=== PATIENT | female | born 1995 | race Caucasian/White ===

== ENCOUNTER 2019-06-16 17:34 | Emergency (ER) | payer OTHER ==
[2019-06-16 17:44] VITALS: BP 130/65
== END 2019-06-16 19:15 | disposition left against medical advice (07) ==
LOC: ER 17:34
DX: Z53.21 Procedure and treatment not carried out due to patient leaving prior to being seen by health care provider (principal)

== ENCOUNTER 2019-06-16 21:23 | Emergency (ER) | payer OTHER ==
[2019-06-16 22:29] LABS: ABSOLUTE BASOPHILS # (AUTO) 0.1 10^3/uL (0.0-0.2); ABSOLUTE EOSINOPHILS # (AUTO) 0.3 10^3/uL (0.0-0.6); ABSOLUTE LYMPHOCYTES (AUTO) 2.3 10^3/uL (0.5-4.7); ABSOLUTE MONOCYTES (AUTO) 0.3 10^3/uL (0.1-1.4); ABSOLUTE NEUT (AUTO) 4.2 10^3/uL (1.7-8.2); BASOPHILS % (AUTO) 0.8 % (0-2); HEMATOCRIT 38.2 % (36.0-47.0); LYMPHOCYTES % (AUTO) 32.4 % (13-45); MEAN CORPUSCULAR HEMOGLOBIN 29.5 pg (27.0-33.4); MEAN CORPUSCULAR HGB CONC 34.1 g/dL (32.0-36.0); MEAN CORPUSCULAR VOLUME 86 fl (80-97); MONOCYTES % (AUTO) 3.9 % (3-13); PLATELET COUNT 237 10^3/uL (150-450); RED BLOOD COUNT 4.42 10^6/uL (3.72-5.28); RED CELL DISTRIBUTION WIDTH 13.3 % (11.5-14.0); SEGMENTED NEUTROPHILS % (AUTO) 58.9 % (42-78); TOTAL CELLS COUNTED % (AUTO) 100 %; WHITE BLOOD COUNT 7.2 10^3/uL (4.0-10.5)
[2019-06-16 22:51] LABS: ALANINE AMINOTRANSFERASE 20 U/L (9-52); ALKALINE PHOSPHATASE 95 U/L (38-126); ANION GAP 5 (5-19); ASPARTATE AMINO TRANSFERASE 20 U/L (14-36); BILIRUBIN,DIRECT 0.2 mg/dL (0.0-0.4); BILIRUBIN,TOTAL 0.2 mg/dL (0.2-1.3); BLOOD UREA NITROGEN 14 mg/dL (7-20); CARBON DIOXIDE 25 mmol/L (22-30); CHLORIDE 109 mmol/L (98-107); GLUCOSE 124 mg/dL (75-110); POTASSIUM 3.9 mmol/L (3.6-5.0); TOTAL PROTEIN 6.5 g/dL (6.3-8.2)
[2019-06-16 22:56] LABS: AMORPHOUS SEDIMENT,URINE 1+ /HPF; APPEARANCE,URINE TURBID; BILIRUBIN,URINE NEGATIVE (NEGATIVE); COLOR,URINE YELLOW; GLUCOSE, URINE NEGATIVE (NEGATIVE); KETONES,URINE NEGATIVE (NEGATIVE); LEUKOCYTE ESTERASE,URINE NEGATIVE (NEGATIVE); NITRITE,URINE NEGATIVE (NEGATIVE); PROTEIN,URINE NEGATIVE (NEGATIVE); URINE SPECIFIC GRAVITY 1.025; UROBILINOGEN,URINE NEGATIVE mg/dL (<2.0)
[2019-06-17] MEDS ORDERED: OXYCODONE-ACETAMINOPHEN 5-325 MG TABLET PO ONE (00:50)
[2019-06-17] MEDS ORDERED: DICYCLOMINE HCL 20 MG TABLET PO ONE (00:50)
[2019-06-17] MEDS ORDERED: KETOROLAC TROMETHAMINE 60 MG/2 ML SDV IM ONE (00:50)
--- NOTE | 2019-06-17 01:29 | ER Document Report ---
ED General - General Chief Complaint: Pelvic Pain Stated Complaint: STOMACH AND PELVIC PAIN Time Seen by Provider: 06/17/19 00:40 Primary Care Provider: LEIDY REYES MD [Primary Care Provider] - Follow up as needed TRAVEL OUTSIDE OF THE [place] IN LAST 30 DAYS: No - HPI Notes: Patient is a 24-year-old female presents emergency department for evaluation of lower abdominal pain, particularly on the left side. Is been intermittent for the last 4 days. She actually states that she has had pain prior to this, very similar nature, intermittently for years. She denies any fevers or chills. No nausea or vomiting. She has a history of chronic constipation. She states that she took some milk of magnesia. She states she is been having bowel movements, had 4 formed bowel movements today, and her pain was worsened after them. She denies any melena or hematochezia. No diarrhea. No dysuria, urinary frequency, or hematuria. No vaginal discharge. No abnormal vaginal bleeding. No genital sores or lesions. She has no history of ovarian cysts. - Related Data Allergies/Adverse Reactions: No Known Allergies Allergy (Verified 06/16/19 17:34) Past Medical History - General Information source: Patient - Social History Smoking Status: Current Every Day Smoker Frequency of alcohol use: Rare Drug Abuse: None Family History: Reviewed & Not Pertinent Patient has suicidal ideation: No Patient has homicidal ideation: No Pulmonary Medical History: Reports: Hx Asthma Renal/ Medical History: Denies: Hx Peritoneal Dialysis Past Surgical History: Reports: Hx Abdominal Surgery, Hx Tonsillectomy - Immunizations Immunizations up to date: Yes Hx Diphtheria, Pertussis, Tetanus Vaccination: Yes Review of Systems - Review of Systems Constitutional: No symptoms reported EENT: No symptoms reported Cardiovascular: No symptoms reported Respiratory: No symptoms reported Gastrointestinal: See HPI Genitourinary: No symptoms reported Female Genitourinary: No symptoms reported Musculoskeletal: No symptoms reported Skin: No symptoms reported Neurological/Psychological: No symptoms reported Physical Exam - Vital signs Vitals: Temp Pulse Resp BP Pulse Ox 97.5 F 100 22 H 144/81 H 98 06/16/19 21:28 06/16/19 21:28 06/16/19 21:28 06/16/19 21:28 06/16/19 21:28 - Notes Notes: This is a 24-year-old female who appears her stated age in no acute distress. Vital signs reviewed, please refer to chart. Head is normocephalic, atraumatic. Pupils equal round, reactive to light. Neck is supple without meningismus. Heart is regular rate and rhythm. Lungs are clear to auscultation bilaterally. Abdomen is soft, moderately tender in the left lower quadrant without rebound or guarding, normoactive bowel sounds throughout. Extremities without cyanosis, clubbing. Posterior calves are nontender. Peripheral pulses are equal. Skin is warm and dry. Patient is awake, alert, neurological exam is nonfocal. Course - Re-evaluation Re-evalutation: 06/17/19 01:26 Patient presents emergency department for evaluation of lower abdominal pain. Her exam is tender but nonsurgical. She has absolutely no associated symptoms with the exception of constipation. This is been an ongoing issue for some time. I explained to her the pain medication might help her temporarily, but it would certainly worsen the underlying suspected problem with constipation. She was given 1 dose of Percocet here. I also administered Toradol and Bentyl. I strongly encouraged the patient to follow-up with her primary care provider, seek out potential referral to gastroenterology. Certainly IBS with constipation would be high on the differential in this patient. She voiced understanding. I will send her home with a prescription for Bentyl and close follow-up. She is given instructions on abdominal pain as well as constipation. She is to return to the emergency department with worsening or new concerning symptoms of any sort. - Vital Signs Vital signs: Temp Pulse Resp BP Pulse Ox 97.5 F 100 22 H 144/81 H 98 06/16/19 21:28 06/16/19 21:28 06/16/19 21:28 06/16/19 21:28 06/16/19 21:28 - Laboratory Result Diagrams: 06/16/19 22:15 06/16/19 22:15 Laboratory results interpreted by me: 06/16/19 06/16/19 21:55 22:15 Chloride 109 H Glucose 124 H Urine Blood SMALL H Discharge - Discharge Clinical Impression: Left lower quadrant abdominal pain Constipation Qualifiers: Constipation type: unspecified constipation type Qualified Code(s): K59.00 - Constipation, unspecified Condition: Stable Disposition: HOME, SELF-CARE Instructions: Abdominal Pain ([facility]), Antispasmodics ([facility]), Constipation ([facility]) Additional Instructions: Take Bentyl as directed. Follow-up with your primary care provider tomorrow. Consider referral on to gastroenterology for further evaluation. If you develop worsening or new concerning symptoms of any sort, return immediately to the emergency department for evaluation. Referrals: LEIDY REYES MD [Primary Care Provider] - Follow up as needed
[2019-06-17 01:43] VITALS: BP 134/82
== END 2019-06-17 01:45 | disposition home or self-care (01) ==
LOC: ER 21:23
DX: K59.00 Constipation, unspecified (principal); R10.32 Left lower quadrant pain; R10.814 Left lower quadrant abdominal tenderness; J45.909 Unspecified asthma, uncomplicated; F17.200 Nicotine dependence, unspecified, uncomplicated
CPT/HCPCS: 99283; 96374; 36415; 83690; 85025; 81025; 80053; 81001; J3490; J1885

== ENCOUNTER 2020-04-06 12:25 | Emergency (ER) | payer SELFPAY ==
[2020-04-06] MEDS ORDERED: METOCLOPRAMIDE HCL INJ/PF 10 MG/2 ML SDV IV ONE (13:06)
[2020-04-06] MEDS ORDERED: ONDANSETRON HCL INJ/PF 4 MG/2 ML SDV IV ONE (13:06)
[2020-04-06] MEDS ORDERED: DIPHENHYDRAMINE HCL 50 MG/ML VIAL IV ONE (13:06)
[2020-04-06] MEDS ORDERED: FAMOTIDINE 20 MG TABLET PO ONE (13:06)
--- NOTE | 2020-04-06 13:16 | ER Document Report ---
ED General - General Chief Complaint: Abdominal Pain Stated Complaint: ABDOMINAL PAIN Primary Care Provider: LEIDY REYES MD [Primary Care Provider] - Follow up as needed Notes: 25-year-old female status post lap band several years ago in [place] presents with abdominal pain left-sided nausea vomiting difficulty swallowing and regurgitation. She says this happens every few months and every time she gets checked out and then I will find anything. She is not on a PPI has no diarrhea or fever. She is not had any recurrent surgeries. She does not have a surgeon here because "they always tell me they can help me." Her pain is moderate and mild and has been going on for several months. She is here today mostly because she cannot tolerate p.o. TRAVEL OUTSIDE OF THE [place] IN LAST 30 DAYS: No - Related Data Allergies/Adverse Reactions: No Known Allergies Allergy (Verified 06/16/19 17:34) Past Medical History - General Information source: Patient - Social History Smoking Status: Current Every Day Smoker Family History: Reviewed & Not Pertinent Patient has homicidal ideation: No Pulmonary Medical History: Reports: Hx Asthma Renal/ Medical History: Denies: Hx Peritoneal Dialysis Past Surgical History: Reports: Hx Abdominal Surgery, Hx Tonsillectomy - Immunizations Immunizations up to date: Yes Hx Diphtheria, Pertussis, Tetanus Vaccination: Yes Review of Systems - Review of Systems Notes: REVIEW OF SYSTEMS GEN: Denies fever, chills, weight loss ENT: Denies sore throat, nasal discharge, ear pain EYES: Denies blurry vision, eye pain, discharge CV: Denies chest pain, palpitations, edema RESP: Denies cough, shortness of breath, wheezing GI: Denies abdominal pain, nausea, vomiting, diarrhea MSK: Denies joint pain/swelling, edema, SKIN: Denies rash, skin lesions LYMPH: Denies swollen glands/lymph nodes NEURO: Denies headache, focal weakness or numbness, dizziness PSYCH: Denies depression, suicidal or homicidal ideation PHYSICAL EXAMINATION General: No acute distress, well-nourished Head: Atraumatic, normocephalic ENT: Mouth normal, oropharynx moist, no exudates or tonsillar enlargement Eyes: Conjunctiva normal, pupils equal, lids normal Neck: No JVD, supple, no guarding CVS: Normal rate, regular rhythm, no murmurs Resp: No resp distress, equal and normal breath sounds bilaterally GI: Nondistended, soft, no tenderness to palpation, no rebound or guarding Ext: No deformities, no edema, normal range of motion in upper and lower ext Back: No CVA or midline TTP Skin: No rash, warm Lymphatic: No lymphadeopathy noted Neuro: Awake, alert. Face symmetric. GCS 15. Physical Exam - Vital signs Vitals: Temp Pulse Resp BP Pulse Ox 98.7 F 137 H 18 145/93 H 98 04/06/20 12:32 04/06/20 12:32 04/06/20 12:32 04/06/20 12:32 04/06/20 12:32 Course - Vital Signs Vital signs: Temp Pulse Resp BP Pulse Ox 98.7 F 137 H 18 145/93 H 98 04/06/20 13:03 04/06/20 12:32 04/06/20 12:32 04/06/20 12:32 04/06/20 12:32 - Laboratory Result Diagrams: 04/06/20 13:25 04/06/20 13:25 Laboratory results interpreted by me: 04/06/20 04/06/20 13:25 13:25 RDW 14.5 H Sodium 136.9 L Discharge - Discharge Clinical Impression: Upper abdominal pain Condition: Good Disposition: HOME, SELF-CARE Additional Instructions: Please contact Dr. Parminder Jones, bariatric surgeon in [place] for follow-up Prescriptions: Omeprazole 40 mg PO DAILY #30 capsule.dr Pickardazine HCl [Phenergan 25 mg Supp.rect] 1 supp NH Q6H #12 supp.rect Forms: Return to Work Referrals: LEIDY REYES MD [Primary Care Provider] - Follow up as needed
[2020-04-06 13:48] LABS: ABSOLUTE BASOPHILS # (AUTO) 0.1 10^3/uL (0.0-0.2); ABSOLUTE EOSINOPHILS # (AUTO) 0.3 10^3/uL (0.0-0.6); ABSOLUTE LYMPHOCYTES (AUTO) 2.5 10^3/uL (0.5-4.7); ABSOLUTE MONOCYTES (AUTO) 0.3 10^3/uL (0.1-1.4); ABSOLUTE NEUT (AUTO) 4.6 10^3/uL (1.7-8.2); BASOPHILS % (AUTO) 0.7 % (0-2); EOSINOPHILS % (AUTO) 3.9 % (0-6); HEMATOCRIT 40.8 % (36.0-47.0); HEMOGLOBIN 13.9 g/dL (12.0-15.5); LYMPHOCYTES % (AUTO) 32.1 % (13-45); MEAN CORPUSCULAR HEMOGLOBIN 29.2 pg (27.0-33.4); MEAN CORPUSCULAR HGB CONC 34.2 g/dL (32.0-36.0); MEAN CORPUSCULAR VOLUME 85 fl (80-97); MONOCYTES % (AUTO) 3.7 % (3-13); PLATELET COUNT 231 10^3/uL (150-450); RED BLOOD COUNT 4.78 10^6/uL (3.72-5.28); RED CELL DISTRIBUTION WIDTH 14.5 % (11.5-14.0); SEGMENTED NEUTROPHILS % (AUTO) 59.6 % (42-78); TOTAL CELLS COUNTED % (AUTO) 100 %; WHITE BLOOD COUNT 7.7 10^3/uL (4.0-10.5)
[2020-04-06 14:10] LABS: ALBUMIN 4.4 g/dL (3.5-5.0); ALKALINE PHOSPHATASE 69 U/L (38-126); ANION GAP 9 (5-19); ASPARTATE AMINO TRANSFERASE 25 U/L (14-36); BILIRUBIN,TOTAL 0.3 mg/dL (0.2-1.3); BLOOD UREA NITROGEN 14 mg/dL (7-20); CALCIUM 9.1 mg/dL (8.4-10.2); CARBON DIOXIDE 23 mmol/L (22-30); CHLORIDE 105 mmol/L (98-107); GLUCOSE 96 mg/dL (75-110); POTASSIUM 4.3 mmol/L (3.6-5.0); TOTAL PROTEIN 7.3 g/dL (6.3-8.2)
[2020-04-06 18:29] VITALS: BP 110/72
== END 2020-04-06 14:45 | disposition home or self-care (01) ==
LOC: ER 12:25
DX: K21.9 Gastro-esophageal reflux disease without esophagitis (principal); R10.10 Upper abdominal pain, unspecified; R11.2 Nausea with vomiting, unspecified; R13.10 Dysphagia, unspecified; Z98.84 Bariatric surgery status; F17.200 Nicotine dependence, unspecified, uncomplicated; J45.909 Unspecified asthma, uncomplicated
CPT/HCPCS: 99284; 96374; 96375; 36415; 83690; 85025; 80076; 80048; J1200; J2765; J2405

== ENCOUNTER 2020-08-26 12:26 | Emergency (ER) | payer SELFPAY ==
[2020-08-26 12:32] VITALS: BP 151/96
[2020-08-26] MEDS ORDERED: ACETAMINOPHEN 325 MG TABLET PO ONE (12:48)
--- NOTE | 2020-08-26 12:48 | ER Document Report ---
ED Medical Screen (RME) - General Chief Complaint: Pelvic Pain Stated Complaint: PELVIC PAIN Time Seen by Provider: 08/26/20 12:41 Primary Care Provider: LEIDY REYES MD [Primary Care Provider] - Follow up as needed Mode of Arrival: Ambulatory Information source: Patient Notes: HPI; 25-year-old female presents to the emergency room complaining of an odorous vaginal discharge that started yesterday along with pelvic pain for the past 2 days. No known exposure to STDs. No history of STDs no meds for symptoms. Sexually active but not using any control. Denies any urinary symptoms. PE: Alert and oriented x3. Mild distress noted. Lungs: Clear to auscultation without rales, rhonchi, wheezes. Heart: Tachycardic without murmurs, rubs, gallops. I have greeted and performed a rapid initial assessment of this patient. A comprehensive ED assessment and evaluation of the patient, analysis of test results and completion of the medical decision making process will be conducted by additional ED providers. I have specifically instructed the patient or family members with the patient to immediately return to any nursing staff should anything change in the patient's condition or with their chief complaint. TRAVEL OUTSIDE OF THE [place] IN LAST 30 DAYS: No - Related Data Allergies/Adverse Reactions: No Known Allergies Allergy (Verified 06/16/19 17:34) Past Medical History - Social History Drug Abuse: Methamphetamine Pulmonary Medical History: Reports: Hx Asthma Renal/ Medical History: Denies: Hx Peritoneal Dialysis Past Surgical History: Reports: Hx Abdominal Surgery, Hx Tonsillectomy - Immunizations Immunizations up to date: Yes Hx Diphtheria, Pertussis, Tetanus Vaccination: Yes Physical Exam - Vital signs Vitals: Temp Pulse Resp BP Pulse Ox 98.4 F 104 H 16 151/96 H 100 08/26/20 12:31 08/26/20 12:31 08/26/20 12:31 08/26/20 12:31 08/26/20 12:31 Course - Vital Signs Vital signs: Temp Pulse Resp BP Pulse Ox 98.4 F 104 H 16 151/96 H 100 08/26/20 12:31 08/26/20 12:31 08/26/20 12:31 08/26/20 12:31 08/26/20 12:31 Doctor's Discharge - Discharge Referrals: LEIDY REYES MD [Primary Care Provider] - Follow up as needed
[2020-08-26 14:17] LABS: APPEARANCE,URINE SLIGHTLY-CLOUDY; BILIRUBIN,URINE SMALL (NEGATIVE); COLOR,URINE AMBER; GLUCOSE, URINE NEGATIVE (NEGATIVE); KETONES,URINE NEGATIVE (NEGATIVE); LEUKOCYTE ESTERASE,URINE SMALL (NEGATIVE); NITRITE,URINE NEGATIVE (NEGATIVE); PROTEIN,URINE 100 mg/dL (NEGATIVE); URINE SPECIFIC GRAVITY 1.032
[2020-08-26 14:19] LABS: ABSOLUTE LYMPHOCYTES (AUTO) 1.8 10^3/uL (0.5-4.7); ABSOLUTE MONOCYTES (AUTO) 0.4 10^3/uL (0.1-1.4); ABSOLUTE NEUT (AUTO) 5.6 10^3/uL (1.7-8.2); BASOPHILS % (AUTO) 0.6 % (0-2); EOSINOPHILS % (AUTO) 0.1 % (0-6); HEMATOCRIT 42.8 % (36.0-47.0); HEMOGLOBIN 15.1 g/dL (12.0-15.5); MEAN CORPUSCULAR HEMOGLOBIN 30.7 pg (27.0-33.4); MEAN CORPUSCULAR HGB CONC 35.4 g/dL (32.0-36.0); MEAN CORPUSCULAR VOLUME 87 fl (80-97); PLATELET COUNT 294 10^3/uL (150-450); RED BLOOD COUNT 4.94 10^6/uL (3.72-5.28); RED CELL DISTRIBUTION WIDTH 13.6 % (11.5-14.0); SEGMENTED NEUTROPHILS % (AUTO) 71.3 % (42-78); TOTAL CELLS COUNTED % (AUTO) 100 %; WHITE BLOOD COUNT 7.8 10^3/uL (4.0-10.5)
[2020-08-26 14:25] LABS: ALBUMIN 4.6 g/dL (3.5-5.0); ALKALINE PHOSPHATASE 95 U/L (38-126); ANION GAP 12 (5-19); ASPARTATE AMINO TRANSFERASE 157 U/L (14-36); BILIRUBIN,DIRECT 0.5 mg/dL (0.0-0.4); BILIRUBIN,TOTAL 1.5 mg/dL (0.2-1.3); BLOOD UREA NITROGEN 13 mg/dL (7-20); CALCIUM 9.9 mg/dL (8.4-10.2); CARBON DIOXIDE 25 mmol/L (22-30); CHLORIDE 104 mmol/L (98-107); GLUCOSE 109 mg/dL (75-110); TOTAL PROTEIN 7.4 g/dL (6.3-8.2)
--- NOTE | 2020-08-26 16:16 | RADIOLOGY REPORT (SQ) ---
EXAM DESCRIPTION: U/S NON OB PEL TV W/DOPPLER IMAGES COMPLETED DATE/TIME: 08/26/2020 4:03 pm REASON FOR STUDY: pelvic pain COMPARISON: None. TECHNIQUE: Dynamic and static grayscale images acquired of the pelvis via transvaginal approach and recorded on PACS. Additional selected color Doppler and spectral images recorded. LIMITATIONS: None. FINDINGS: UTERUS: Contour normal. No mass. ENDOMETRIAL STRIPE: No focal or generalized thickening. No masses. CERVIX: No nabothian cysts. RIGHT OVARY AND DOPPLER: Normal size. No worrisome masses. Normal arterial vascular flow without evid ence for torsion. LEFT OVARY AND DOPPLER: Normal size. No worrisome masses. Normal arterial vascular flow without evide nce for torsion. FREE FLUID: None noted. OTHER: No other significant finding. IMPRESSION: NORMAL TRANSVAGINAL PELVIC ULTRASOUND. TECHNICAL DOCUMENTATION: JOB ID: [id number] 2010 [facility]- All Rights Reserved Rev-04/03 Reading location - IP/workstation name: [email or web address]
--- NOTE | 2020-08-26 17:30 | ER Document Report ---
ED General - General Chief Complaint: Pelvic Pain Stated Complaint: PELVIC PAIN Time Seen by Provider: 08/26/20 12:41 Primary Care Provider: LEIDY REYES MD [ACTIVE STAFF] - Follow up as needed Mode of Arrival: Ambulatory TRAVEL OUTSIDE OF THE [place] IN LAST 30 DAYS: No - HPI Notes: Patient is a 25-year-old female with a history of methamphetamine abuse, IV drug abuse, who presents to the emergency department for evaluation of pelvic pain. She states is been going on for the last several days. She states that sometimes it radiates up into her abdomen, but she states she has chronic abdominal pain from her lap band surgery, so she is unsure if this is related. She admits to vaginal discharge which she states is green and foul-smelling. She is very vague in regards to her sexual activity. She states the last sexual activity she remembers have been several weeks ago, when I ask any further information she states "I cannot remember, I do not think anyone would do that to me." I asked her repeatedly to expand upon the subject, she refuses. She denies any fevers or chills. No nausea or vomiting. Her bowel movements have been "normal" for her status post lap band. - Related Data Allergies/Adverse Reactions: No Known Allergies Allergy (Verified 06/16/19 17:34) Past Medical History - General Information source: Patient - Social History Smoking Status: Current Every Day Smoker Drug Abuse: Methamphetamine Family History: Reviewed & Not Pertinent Pulmonary Medical History: Reports: Hx Asthma Renal/ Medical History: Denies: Hx Peritoneal Dialysis Past Surgical History: Reports: Hx Abdominal Surgery, Hx Tonsillectomy - Immunizations Immunizations up to date: Yes Hx Diphtheria, Pertussis, Tetanus Vaccination: Yes Review of Systems - Review of Systems Constitutional: No symptoms reported EENT: No symptoms reported Cardiovascular: No symptoms reported Respiratory: No symptoms reported Gastrointestinal: See HPI Genitourinary: No symptoms reported Female Genitourinary: See HPI Musculoskeletal: No symptoms reported Skin: No symptoms reported Neurological/Psychological: No symptoms reported Physical Exam - Vital signs Vitals: Temp Pulse Resp BP Pulse Ox 98.4 F 104 H 16 151/96 H 100 08/26/20 12:31 08/26/20 12:31 08/26/20 12:31 08/26/20 12:31 08/26/20 12:31 - Notes Notes: This is a 25-year-old female who appears her stated age, no acute distress. She is hesitant to discuss multiple issues with this provider. She does however, make good eye contact. She does not appear to be reacting to any internal stimuli. Vital signs reviewed, please refer to chart. Head is normocephalic, atraumatic. Pupils equal round, reactive to light. Neck is supple without m eningismus. Heart is regular rate and rhythm. Lungs are clear to auscultation bilaterally. Abdomen is soft, minimally tender in the epigastrium, right lower quadrant, left lower quadrant, normoactive bowel sounds throughout. Extremities without cyanosis, clubbing. Posterior calves are nontender. Peripheral pulses are equal. Skin is warm and dry. Patient is awake, alert, neurological exam is nonfocal. Course - Re-evaluation Re-evalutation: 08/26/20 17:28 Patient presents to the emergency department for evaluation. She was initially seen through triage. Pelvic exam was set up, I was waiting for nursing/PCT dye stand loader to perform this part of the examination. I talked to the patient at length about her elevated LFTs. I talked to her about ordering a hepatitis panel given her history of IV drug abuse. I talked to her about a right upper quadrant ultrasound as well, given her history of vague abdominal pain issues. I also talked to her about possible drug referral, and empiric treatment for gonorrhea and chlamydia. She voiced understanding. I told the patient I had several more orders placed, I would come back and perform her pelvic exam. While awaiting results from further testing, I was notified by nursing that she was not found in the room. Evidently she called, stating she had a "family emergency" and had to leave. She plans on returning to the department tomorrow. There were multiple tests, the patient was aware of these, that have not been performed. She left without any sort of discharge instructions, nor without receiving any of the warnings associated. - Vital Signs Vital signs: Temp Pulse Resp BP Pulse Ox 98.4 F 104 H 16 151/96 H 100 08/26/20 12:31 08/26/20 12:31 08/26/20 12:31 08/26/20 12:31 08/26/20 12:31 - Laboratory Result Diagrams: 08/26/20 13:43 08/26/20 13:43 Laboratory results interpreted by me: 08/26/20 08/26/20 13:43 13:43 Total Bilirubin 1.5 H Direct Bilirubin 0.5 H AST 157 H ALT 363 H Urine Protein 100 H Urine Blood SMALL H Urine Bilirubin SMALL H Urine Urobilinogen 4.0 H Ur Leukocyte Esterase SMALL H - Diagnostic Test Radiology reviewed: Reports reviewed Radiology results interpreted by me: 08/26/20 17:30 Transvaginal US 08/26/20 14:28 IMPRESSION: NORMAL TRANSVAGINAL PELVIC ULTRASOUND. Discharge - Discharge Clinical Impression: Pelvic pain, Vaginal discharge, Elevated LFTs Condition: Stable Disposition: ELOPED Referrals: LEIDY REYES MD [ACTIVE STAFF] - Follow up as needed
== END 2020-08-26 17:29 | disposition left against medical advice (07) ==
LOC: ER 12:26
DX: R10.2 Pelvic and perineal pain (principal); R10.813 Right lower quadrant abdominal tenderness; R10.816 Epigastric abdominal tenderness; R10.814 Left lower quadrant abdominal tenderness; N89.8 Other specified noninflammatory disorders of vagina; R79.89 Other specified abnormal findings of blood chemistry; F15.10 Other stimulant abuse, uncomplicated; F17.200 Nicotine dependence, unspecified, uncomplicated; J45.909 Unspecified asthma, uncomplicated; Z98.84 Bariatric surgery status; Z53.29 Procedure and treatment not carried out because of patient's decision for other reasons
CPT/HCPCS: 36415; 76830; 80053; 81001; 84703; 85025; 93976; 99281